=== PATIENT | female | born 1995 | race Caucasian/White ===

== ENCOUNTER 2021-05-08 11:11 | Emergency (ER) | payer SELFPAY ==
[2021-05-08] MEDS ORDERED: ACETAMINOPHEN 325 MG TAB PO ONE (11:26)
[2021-05-08 11:46] VITALS: BP 115/69
--- NOTE | 2021-05-08 12:12 | Emergency Department Report ---
Chief Complaint: Dyspnea/Respdistress Stated Complaint: FLU SYM Time Seen by Provider: 05/08/21 11:44 - Exam Vital Signs: Vital Signs 05/08/21 11:25 Temperature 100.2 F H Pulse Rate 104 H Respiratory 18 Rate Blood Pressure 115/69 O2 Sat by Pulse 96 Oximetry Physical Exam: General: Awake, appropriately interactive, no acute distress. Neck: Supple. Full range of motion intact. Cardiovascular: Normal peripheral perfusion. Pulmonary: No respiratory distress. Patient is speaking normally without use of accessory muscles. Skin: No apparent rashes or lesions. Neurological: No facial asymmetry. Speech is clear. Follows commands. Patient is alert and oriented. Musculoskeletal: Full range of motion, no crepitus. Able to bear weight and ambulate without difficulty. Distal neurovascular and motor/sensory function is intact. Psych: Cooperative. Appropriate mood and affect. MSE screening note: Focused history and physical exam performed. Due to findings the following was ordered: ED Disposition for MSE Disposition: DC-01 TO HOME OR SELFCARE Is pt being admited?: No Does the pt Need Aspirin: No Condition: Stable Additional Instructions: You can obtain a Covid test at [facility]. Your symptoms appear most consistent with a nonspecific viral syndrome. However, given this current pandemic, COVID-19 is in the differential of possibilities. I do recommend outpatient Covid 19 testing. In the meantime, isolate/quarantine yourself and stay away from anyone who is elderly, immunocompromised or chronically ill. You can use ibuprofen every 6-8 hours and Tylenol every 4-8 hours, using the dosing on the back of the bottle, as needed for any fever or body aches. Return to the emergency department with any worsening of your symptoms, development of chest pain or shortness of breath, or with any acute distress. Puede obtener marysol prueba de Covid en [facility]. Beverley sntomas parecen ms consistentes con un sndrome viral inespecfico. Sin embargo, nhung esta pandemia actual, el COVID-19 est en el diferencial de posibilidades. S recomiendo pruebas ambulatorias de Covid 19. Mientras tanto, aslese/pngase en cuarentena y mantngase alejado de cualquier persona de edad avanzada, inmunodeprimida o con enfermedades crnicas. Puede usar ibuprofeno cada 6-8 horas y Tylenol cada 4-8 horas, usando la dosificacin en la parte posterior de la botella, segn sea necesario para cualquier fiebre o manfred corporales. Regrese al departamento de emergencias con cualquier empeoramiento de beverley sntomas, desarrollo de dolor en el pecho o dificultad para respirar, o con cualquier angustia aguda. Forms: Work/School Release Form(ED) Time of Disposition: 12:07
== END 2021-05-08 12:42 | disposition home or self-care (01) ==
LOC: ED 11:11
DX: J18.9 Pneumonia, unspecified organism (principal)
CPT/HCPCS: 99282